=== PATIENT | female | born 1960 | race Caucasian/White ===

== ENCOUNTER 2017-04-10 08:11 | Outpatient (CLI) | payer OTHER ==
[~2017-04-10 08:11] MED LIST: DIPHENOXYLATE-A1 TA1 PO; ULTRACET PO
== END 2017-04-10 15:19 | disposition home or self-care (01) ==
LOC: MAMO-SONO 08:11
DX: Z12.31 Encounter for screening mammogram for malignant neoplasm of breast (principal); N60.11 Diffuse cystic mastopathy of right breast; N60.12 Diffuse cystic mastopathy of left breast

== ENCOUNTER 2018-04-17 09:49 | Outpatient (CLI) | payer OTHER | END 2018-04-17 10:19 | disposition home or self-care (01) | LOC: MAMO-SONO 09:49 | DX: Z12.31 Encounter for screening mammogram for malignant neoplasm of breast (principal); N60.11 Diffuse cystic mastopathy of right breast; N60.12 Diffuse cystic mastopathy of left breast ==

== ENCOUNTER 2019-05-02 09:00 | Outpatient (CLI) | payer OTHER | END 2019-05-02 09:08 | disposition home or self-care (01) | LOC: MAMO-SONO 09:00 | DX: Z12.31 Encounter for screening mammogram for malignant neoplasm of breast (principal); Z87.898 Personal history of other specified conditions; N60.11 Diffuse cystic mastopathy of right breast; N60.12 Diffuse cystic mastopathy of left breast; N64.4 Mastodynia ==

== ENCOUNTER 2020-05-07 07:06 | Outpatient (CLI) | payer OTHER | END 2020-05-07 07:16 | disposition home or self-care (01) | LOC: MAMO-SONO 07:06 | PROVIDERS: ATTEND Obstetrics & Gynecology | DX: Z12.31 Encounter for screening mammogram for malignant neoplasm of breast (principal); N60.11 Diffuse cystic mastopathy of right breast; N60.12 Diffuse cystic mastopathy of left breast; R92.0 Mammographic microcalcification found on diagnostic imaging of breast ==

== ENCOUNTER 2020-05-14 02:37 | Emergency (ER) | payer OTHER ==
[~2020-05-14] VITALS: Ht 165.1 cm; Wt 74.8 kg
[2020-05-14] MEDS ORDERED: SYNTHROID112 MCG (02:52)
[2020-05-14] MEDS ORDERED: ONDANSETRON ODT8 MG PO (07:01)
== END 2020-05-14 08:14 | disposition home or self-care (01) ==
LOC: ER 02:37
DX: H81.03 Meniere's disease, bilateral (principal); R42 Dizziness and giddiness

== ENCOUNTER 2022-10-17 09:50 | Outpatient (CLI) | payer OTHER ==
[~2022-10-17 09:50] MED LIST changes: +ONDANSETRON ODT8 MG PO; +SYNTHROID112 MCG
== END 2022-10-17 10:07 | disposition home or self-care (01) ==
LOC: MAMO-SONO 09:50
PROVIDERS: ATTEND Obstetrics & Gynecology
DX: N60.11 Diffuse cystic mastopathy of right breast (principal); N60.12 Diffuse cystic mastopathy of left breast

== ENCOUNTER 2024-05-30 10:27 | Outpatient (CLI) | payer OTHER | END 2024-05-30 10:30 | disposition home or self-care (01) | LOC: MAMO-SONO 10:27 | PROVIDERS: ATTEND Obstetrics & Gynecology | DX: N60.11 Diffuse cystic mastopathy of right breast (principal); N60.12 Diffuse cystic mastopathy of left breast; Z12.31 Encounter for screening mammogram for malignant neoplasm of breast ==